=== PATIENT | female | born 1955 | race Caucasian/White ===

== ENCOUNTER → 2016-05-07 | Outpatient (CLI) | payer BC ==
--- NOTE | 2016-05-07 09:23 | DIAGNOSTIC IMAGING REPORT ---
TIMED BARIUM SWALLOW CLINICAL HISTORY: Dysphagia with solids. COMPARISON STUDY: No priors. FINDINGS: 2 spot fluoroscopic views of the gastroesophageal junction from a timed barium swallow were obtained. The contrast column cleared the esophagus by 30 seconds. No gastroesophageal reflux was observed at the time of examination. The barium pill passed normally. Midline sternotomy wires are noted. A tiny hiatal hernia is identified. Fluoroscopy time: 1.4 minutes. IMPRESSION: 1. The contrast column cleared the esophagus by 30 seconds. 2. The barium pill passed normally. 3. Small hiatal hernia. Electronically signed by: Dat Pickard M.D. 05/07/2016 9:22 AM Dictated Date/Time: 05/07/2016 9:10 AM
== END | disposition home or self-care (01) ==
LOC: C.RAD 08:27
PROVIDERS: ATTEND Internal Medicine Gastroenterology
DX: R13.10 Dysphagia, unspecified (principal)